=== PATIENT | male | born 1975 | race Caucasian/White ===

== ENCOUNTER 2018-04-29 17:21 | Emergency (ER) | payer OTHER, MEDICAID ==
[~2018-04-29] VITALS: Ht 165.1 cm; Wt 74.4 kg
[~2018-04-29 17:21] MED LIST: CLONIDINE HCL0.1 MG PO; PHOSLO667 MG PO; RENAGEL400 MG PO
[2018-04-29 17:28] VITALS: Ht 165.1 cm; Wt 74.4 kg
[2018-04-29 18:55] LABS: BASOPHIL % 0.3 % (0-2); PLATELET COUNT 192 x10^3mcL (130-400); RED CELL DISTRIBUTION WIDTH 14.1 % (11.5-14.5)
[2018-04-29 19:37] LABS: ALBUMIN 3.6 g/dL (3.4-5.0); BILIRUBIN TOTAL 0.48 mg/dL (0.20-1.00); CALCIUM 9.6 mg/dL (8.5-10.1); PHOSPHOROUS 7.5 mg/dL (2.5-4.9); TOTAL PROTEIN, SERUM 7.6 g/dL (6.4-8.2)
[2018-04-29 20:32] VITALS: BP 136/94
== END 2018-04-29 20:32 | disposition home or self-care (01) ==
LOC: ED 17:21
PROVIDERS: Emergency Medicine
DX: R53.1 Weakness (principal); M25.50 Pain in unspecified joint; I12.9 Hypertensive chronic kidney disease with stage 1 through stage 4 chronic kidney disease, or unspecified chronic kidney disease; N18.9 Chronic kidney disease, unspecified
CPT/HCPCS: 36415; Q0092

== ENCOUNTER 2018-11-19 13:19 | Inpatient (IN) | payer OTHER, MEDICAID ==
[~2018-11-19] VITALS: Ht 167.6 cm; Wt 71.2 kg
[2018-11-19 13:35] VITALS: Ht 167.6 cm; Wt 71.2 kg
[2018-11-19 14:44] LABS: BASOPHIL % 0.4 % (0-2); PLATELET COUNT 199 x10^3mcL (130-400); RED CELL DISTRIBUTION WIDTH 13.3 % (11.5-14.5)
[2018-11-19 15:02] LABS: ALBUMIN 3.7 g/dL (3.4-5.0); ALKALINE PHOSPHATASE 385 U/L (46-116); ALT/SGPT 38 U/L (16-63); AST/SGOT 15 U/L (15-37); CALCIUM 9.9 mg/dL (8.5-10.1); CARBON DIOXIDE 31.3 mmol/L (21-32); CHLORIDE SERUM 94 mmol/L (98-107); CHOLESTEROL 137 mg/dL (<200); GLUCOSE SERUM 138 mg/dL (74-106); HDL CHOLESTEROL 43 mg/dL (40-60); POTASSIUM SERUM 4.7 mmol/L (3.5-5.1); SODIUM SERUM 136 mmol/L (136-145); TOTAL PROTEIN, SERUM 7.9 g/dL (6.4-8.2)
[2018-11-19 15:03] LABS: GFR1 8 mL/min
[2018-11-19 15:04] LABS: CREATININE SERUM 7.6 mg/dL (0.7-1.3)
[2018-11-19] MEDS ORDERED: RENA-VITE RX1 TAB (19:48)
[2018-11-19] MEDS ORDERED: PHARMASSURE FO0.4 MG (19:48)
[2018-11-19] MEDS ORDERED: APAP/HYDROCODON1 T13 (19:50)
[2018-11-19] MEDS ORDERED: TRAMADOL HCL50 MG PO (19:50)
[2018-11-19] MEDS ORDERED: EPZICOM1 TAB (19:50)
[2018-11-19 19:59] LABS: CHOLESTEROL/HDL RATIO 3.6; MAGNESIUM 2.2 mg/dL (1.8-2.4); PHOSPHOROUS 5.3 mg/dL (2.5-4.9)
[2018-11-19 20:15] VITALS: BP 136/96
[2018-11-19 20:18] VITALS: BP 136/96
[2018-11-19 20:41] LABS: LIPASE 397 IU/L (73-393)
[2018-11-19 20:42] LABS: AMYLASE 140 U/L (25-115)
[2018-11-20 04:48] VITALS: BP 122/71
[2018-11-20 06:37] LABS: CALCIUM 9.8 mg/dL (8.5-10.1); CARBON DIOXIDE 30.5 mmol/L (21-32); POTASSIUM SERUM 4.8 mmol/L (3.5-5.1)
[2018-11-20 06:50] LABS: BASOPHIL % 0.6 % (0-2); PLATELET COUNT 171 x10^3mcL (130-400); RED CELL DISTRIBUTION WIDTH 13.2 % (11.5-14.5)
[2018-11-20 07:09] LABS: CREATININE SERUM 9.9 mg/dL (0.7-1.3)
[2018-11-20 09:39] VITALS: BP 130/89
[2018-11-20 16:46] VITALS: BP 160/100
[2018-11-20 21:07] VITALS: BP 144/79
[2018-11-20 21:15] VITALS: BP 110/75
[2018-11-21 05:28] VITALS: BP 116/66
[2018-11-21 06:20] LABS: BASOPHIL % 0.4 % (0-2); PLATELET COUNT 182 x10^3mcL (130-400); RED CELL DISTRIBUTION WIDTH 13.3 % (11.5-14.5)
[2018-11-21 06:51] LABS: CALCIUM 9.7 mg/dL (8.5-10.1); CARBON DIOXIDE 26.7 mmol/L (21-32); CREATININE SERUM 8.4 mg/dL (0.7-1.3); MAGNESIUM 2.3 mg/dL (1.8-2.4); PHOSPHOROUS 6.1 mg/dL (2.5-4.9); POTASSIUM SERUM 5.4 mmol/L (3.5-5.1)
[2018-11-21 10:05] VITALS: BP 129/78
[2018-11-21 18:22] VITALS: BP 159/92
[2018-11-21 21:19] VITALS: BP 134/80
[2018-11-22 05:50] VITALS: BP 114/70
[2018-11-22 06:36] LABS: CALCIUM 9.5 mg/dL (8.5-10.1); CARBON DIOXIDE 24.2 mmol/L (21-32)
[2018-11-22 06:47] LABS: POTASSIUM SERUM 7.2 mmol/L (3.5-5.1)
[2018-11-22 06:48] LABS: CREATININE SERUM 11.2 mg/dL (0.7-1.3)
[2018-11-22 07:39] LABS: BASOPHIL % 0 % (0-2); PLATELET COUNT 195 x10^3mcL (130-400); RED CELL DISTRIBUTION WIDTH 13.1 % (11.5-14.5)
[2018-11-22 08:30] VITALS: BP 132/84
[2018-11-22 13:49] VITALS: BP 132/84; BP 135/78
[2018-11-22 17:20] VITALS: BP 139/88
[2018-11-22 20:42] VITALS: BP 133/80
[2018-11-23 06:30] VITALS: BP 120/76
[2018-11-23 08:00] VITALS: BP 135/78
[2018-11-23] MEDS ORDERED: NORCO1 TA1 PO (11:32)
== END 2018-11-23 13:06 | disposition home or self-care (01) | DRG 698 ==
LOC: ED 13:19 → MU 19:17
PROVIDERS: Emergency Medicine; Internal Medicine; ADMIT Family Medicine
DX: N25.0 Renal osteodystrophy (principal); K85.90 Acute pancreatitis without necrosis or infection, unspecified; I12.0 Hypertensive chronic kidney disease with stage 5 chronic kidney disease or end stage renal disease; N18.6 End stage renal disease; N17.0 Acute kidney failure with tubular necrosis; E78.1 Pure hyperglyceridemia; E83.39 Other disorders of phosphorus metabolism; Z99.2 Dependence on renal dialysis; Z68.25 Body mass index [BMI] 25.0-25.9, adult
CPT/HCPCS: 83880; 87804; J2270; J2405; J2920; J3010; J7030; Q0092; Q0163

== ENCOUNTER 2019-03-04 11:04 | Emergency (ER) | payer OTHER, MEDICAID ==
[~2019-03-04] VITALS: Ht 167.6 cm; Wt 69.4 kg
[~2019-03-04 11:04] MED LIST changes: +APAP/HYDROCODON1 T13; +EPZICOM1 TAB; +NORCO1 TA1 PO; +PHARMASSURE FO0.4 MG; +RENA-VITE RX1 TAB; +TRAMADOL HCL50 MG PO
[2019-03-04 11:13] VITALS: Ht 167.6 cm; Wt 69.4 kg
[2019-03-04 13:20] VITALS: BP 166/110
== END 2019-03-04 13:20 | disposition home or self-care (01) ==
LOC: ED 11:04
DX: M54.42 Lumbago with sciatica, left side (principal); I12.9 Hypertensive chronic kidney disease with stage 1 through stage 4 chronic kidney disease, or unspecified chronic kidney disease; N18.9 Chronic kidney disease, unspecified; Z99.2 Dependence on renal dialysis
CPT/HCPCS: J1885

== ENCOUNTER 2019-03-12 19:32 | Inpatient (IN) | payer OTHER, MEDICAID ==
[~2019-03-12] VITALS: Ht 172.7 cm; Wt 79.1 kg
[2019-03-12 19:37] VITALS: Ht 172.7 cm; Wt 79.1 kg
[2019-03-12 20:43] LABS: BASOPHIL % 0.4 % (0-2); PLATELET COUNT 207 x10^3mcL (130-400); RED CELL DISTRIBUTION WIDTH 13.3 % (11.5-14.5)
[2019-03-12 21:10] LABS: BILIRUBIN TOTAL 0.51 mg/dL (0.20-1.00); CALCIUM 10.4 mg/dL (8.5-10.1); POTASSIUM SERUM 4.1 mmol/L (3.5-5.1); TOTAL PROTEIN, SERUM 7.1 g/dL (6.4-8.2)
[2019-03-12 21:15] LABS: ALBUMIN 3.3 g/dL (3.4-5.0)
[2019-03-12 21:16] LABS: CREATININE SERUM 6.5 mg/dL (0.7-1.3)
[2019-03-13] VITALS (7 sets, daily range): BP systolic 152–170; BP diastolic 91–108
[2019-03-13 02:41] LABS: MAGNESIUM 1.9 mg/dL (1.8-2.4); PHOSPHOROUS 6.6 mg/dL (2.5-4.9)
[2019-03-13 06:12] LABS: BASOPHIL % 0.5 % (0-2); PLATELET COUNT 190 x10^3mcL (130-400); RED CELL DISTRIBUTION WIDTH 13.3 % (11.5-14.5)
[2019-03-13 06:24] LABS: CALCIUM 10.1 mg/dL (8.5-10.1); CARBON DIOXIDE 29.3 mmol/L (21-32); MAGNESIUM 1.9 mg/dL (1.8-2.4); PHOSPHOROUS 8.5 mg/dL (2.5-4.9); POTASSIUM SERUM 4.6 mmol/L (3.5-5.1)
[2019-03-13 06:28] LABS: CREATININE SERUM 7.6 mg/dL (0.7-1.3)
[2019-03-13] MEDS ORDERED: OXYCODONE HYDROC5 M2 PO (12:51)
[2019-03-14 06:04] VITALS: BP 148/94
[2019-03-14 06:35] LABS: BASOPHIL % 0.4 % (0-2); PLATELET COUNT 184 x10^3mcL (130-400); RED CELL DISTRIBUTION WIDTH 13.1 % (11.5-14.5)
[2019-03-14 06:46] LABS: CALCIUM 10.2 mg/dL (8.5-10.1); MAGNESIUM 2.3 mg/dL (1.8-2.4); POTASSIUM SERUM 5.5 mmol/L (3.5-5.1)
[2019-03-14 07:31] LABS: CREATININE SERUM 10.5 mg/dL (0.7-1.3)
[2019-03-14 08:10] VITALS: BP 165/102
[2019-03-14 08:38] LABS: PHOSPHOROUS 9.6 mg/dL (2.5-4.9)
[2019-03-14 17:06] VITALS: BP 171/112
[2019-03-14 17:35] VITALS: BP 154/111
[2019-03-14 18:40] VITALS: BP 154/111
[2019-03-14 21:07] VITALS: BP 176/107
[2019-03-15 00:15] VITALS: BP 158/104
[2019-03-15 05:46] VITALS: BP 148/97
[2019-03-15 07:04] LABS: CALCIUM 10.1 mg/dL (8.5-10.1); CARBON DIOXIDE 24.6 mmol/L (21-32); PHOSPHOROUS 8.4 mg/dL (2.5-4.9); POTASSIUM SERUM 4.9 mmol/L (3.5-5.1)
[2019-03-15 07:05] LABS: CREATININE SERUM 7.6 mg/dL (0.7-1.3)
[2019-03-15 07:26] LABS: BASOPHIL % 0.6 % (0-2); PLATELET COUNT 188 x10^3mcL (130-400); RED CELL DISTRIBUTION WIDTH 13.3 % (11.5-14.5)
[2019-03-15 09:00] VITALS: BP 153/105
[2019-03-15 17:26] VITALS: BP 159/106
[2019-03-15 20:27] VITALS: BP 160/102
[2019-03-16 04:19] VITALS: BP 152/100
[2019-03-16 06:23] LABS: BASOPHIL % 0.4 % (0-2); PLATELET COUNT 199 x10^3mcL (130-400); RED CELL DISTRIBUTION WIDTH 13.3 % (11.5-14.5)
[2019-03-16 06:26] LABS: CALCIUM 9.7 mg/dL (8.5-10.1); CARBON DIOXIDE 26.2 mmol/L (21-32)
[2019-03-16 06:45] LABS: CREATININE SERUM 10.5 mg/dL (0.7-1.3)
[2019-03-16 08:32] VITALS: BP 171/100
[2019-03-16 09:13] VITALS: BP 154/99
== END 2019-03-16 10:45 | disposition home or self-care (01) | DRG 699 ==
LOC: ED 19:32 → MU 23:19
PROVIDERS: Emergency Medicine; Internal Medicine; ADMIT General Practice
PROC: 5A1D70Z Performance of Urinary Filtration, Intermittent, Less than 6 Hours Per Day (ICD-10-PCS; principal; 2019-03-14)
DX: N25.0 Renal osteodystrophy (principal); I12.0 Hypertensive chronic kidney disease with stage 5 chronic kidney disease or end stage renal disease; N17.0 Acute kidney failure with tubular necrosis; N18.6 End stage renal disease; M54.32 Sciatica, left side; E87.5 Hyperkalemia; E83.39 Other disorders of phosphorus metabolism; E78.1 Pure hyperglyceridemia; Z68.24 Body mass index [BMI] 24.0-24.9, adult; Z99.2 Dependence on renal dialysis
CPT/HCPCS: 97116-GP; 97530-GP; J0610; J1885; J2270; J7030; Q0163; Q9967

== ENCOUNTER 2020-06-06 19:28 | Emergency (ER) | payer OTHER, MEDICAID ==
[~2020-06-06] VITALS: Ht 167.6 cm; Wt 74.8 kg
[~2020-06-06 19:28] MED LIST changes: +OXYCODONE HYDROC5 M2 PO
[2020-06-06 19:34] VITALS: Ht 167.6 cm; Wt 74.8 kg
[2020-06-07 00:13] VITALS: BP 171/108
== END 2020-06-07 00:10 | disposition home or self-care (01) ==
LOC: ED 19:28
DX: H60.02 Abscess of left external ear (principal)
CPT/HCPCS: J2270; Q0162